=== PATIENT | male | born 1960 | race Caucasian/White ===

== ENCOUNTER 2023-11-03 16:28 | Emergency (ER) | payer OTHER, SELFPAY ==
--- NOTE | 2023-11-03 16:35 | ED_ITS ---
HPI - General Adult General Chief complaint: Hypertension Stated complaint: High BP 175/99, blurry vision Time Seen by Provider: 11/03/23 16:35 History of Present Illness HPI narrative: comes to ed with some multiple concerns. reports that he has noticed that his vision was not clear yesterday early am. was unable to make out distant road signs.he has a feeling of some abdominal bloating-like unable to pass gas. had a headache this am. noticed that his bp has been elevated, 177/99. is eating and drinking ok. no other neuro deficits. 63-year-old man presenting to the emergency department with concern of high blood pressure among other matters. I notice some hairs on his sweat pants. Looks to be dog hairs and he does mention how 2 days ago he had to put his 15-year-old dog Manjit down. He describes what may have been Manjit's last trip down the stairs and in the yard. Has been struggling with sleep. Now he is surrounded by 3 cats make sleeping challenging. Has at other times tried what sounds to be diphenhydramine but has left him somewhat groggy in the morning. Does have I believe a 20 and a 21-year-old son living at home with him currently. Due to some changes in one of his son's life and needing to drive him to work in the 5:00 a.m.hour a few? times a week he is needing to go to bed earlier than typical and has trouble falling asleep. He was up I believe yesterday morning early to drive his son to work. Was not feeling well on his way back. Sounds like must have been fatigued in part. Vision was not exactly clear. [place] ultimately having a bowel movement. It is okay now with normal vision and without headache. He has also had trouble historically in darker hours of driving and purchased some yellow tinted clip bonds that have been helpful. He did have a headache as well around this time of visual changes. Yesterday had a couple of bowel movements which he would normally associated with improvement in headache. This is a pattern of longstanding duration. He describes also what might be some employment related stress. History of mildly elevated blood pressures in clinic that he reports resolved at home on recheck. Primary has retired and he has not established new primary care. Last labs drawn for some years back when he was evaluated through this emergency department for potential stroke. MRI after overnight stay sounds to have been unremarkable. He does offer having had some panic attacks years ago. He has been treated somewhat remotely with what I am understanding was Ativan. He does say that he had been doing some reading regarding elevated blood pressures as noted above and association with visual changes, optic discs, and this did finally prompt visit here today. Related Data Home Medications Medication Instructions Recorded Confirmed No Known Home Medications 11/03/23 11/03/23 Allergies Allergy/AdvReac Type Severity Reaction Status Date / Time amoxicillin Allergy Verified 11/03/23 16:40 Review of Systems Status of ROS: Reports: 6 or more systems reviewed and unremarkable except as noted in History and below [facility] Social History Smoking Status: Never smoker Do you use any of these nicotine containing products: None Second hand tobacco smoke exposure: No How often do you have a drink containing alcohol: never How often do you have six or more drinks on one occasion: Never AUDIT-C Alcohol total score: 0 Non-prescribed substance use: denies use service: No Exam Narrative: Exam Narrative: Very pleasant. Calm. NAD. Appropriately, casually groomed. Initially seemed a little flushed facially but less over time in the ER. Skin is warm and dry. No apparent rash. Extremities are without edema and well-perfused. Heart in regular rate and rhythm without murmur rub or gallop. Lungs are clear. Cranial nerves 2-12 intact. Funduscopic exam is unremarkable with what appear to be normal optic discs. Sensation intact with good strength throughout. Head is atraumatic. Const: Vital Signs, click to edit/add: Vital Signs - 24 hr 11/03/23 16:41 11/03/23 17:23 11/03/23 17:30 Temperature 97.8 F Pulse Rate 69 75 Pulse Rate [Femora l] 82 Respiratory Rate 18 Blood Pressure Blood Pressure [Ri ght Upper Arm] 174/95 H Pulse Oximetry 100 98 98 Oxygen Delivery Me thod Room Air 11/03/23 17:32 11/03/23 17:45 Temperature Pulse Rate 70 69 Pulse Rate [Femora l] Respiratory Rate Blood Pressure 165/94 H Blood Pressure [Ri ght Upper Arm] Pulse Oximetry 98 93 Oxygen Delivery Me thod Documenting provider has reviewed patient's vital signs: yes Course Vital Signs Vital signs: Initial Vital Signs Temperature 97.8 F 11/03/23 16:41 Temperature Source Temporal Artery Scan 11/03/23 16:41 Pulse Rate 82 11/03/23 16:41 Pulse Rhythm Regular 11/03/23 16:41 Respiratory Rate 18 11/03/23 16:41 Blood Pressure 174/95 H 11/03/23 16:41 Blood Pressure Mean 121 H 11/03/23 16:41 Blood Pressure Position Supine 11/03/23 16:41 Pulse Oximetry 100 11/03/23 16:41 Oxygen Delivery Method Room Air 11/03/23 16:41 Vital Signs Temperature 97.8 F 11/03/23 16:41 Pulse Rate 82 11/03/23 16:41 Respiratory Rate 18 11/03/23 16:41 Blood Pressure 174/95 H 11/03/23 16:41 Pulse Oximetry 100 11/03/23 16:41 Oxygen Delivery Method Room Air 11/03/23 16:41 Temperature 97.8 F 11/03/23 16:41 Pulse Rate 69 11/03/23 17:45 Respiratory Rate 18 11/03/23 16:41 Blood Pressure 165/94 H 11/03/23 17:32 Pulse Oximetry 93 11/03/23 17:45 Oxygen Delivery Method Room Air 11/03/23 16:41 Medical Decision Making MDM Narrative Medical decision making narrative: Spent longer time in conversation. Over time in the emergency department monitoring, blood pressure did improve somewhat. No events on monitor. Given constellation of symptoms and associated life events I think stress is contributing to much of these findings. I doubt ischemic cardiovascular event in certainly does not have symptoms consistent with CVA here today. May have experienced some tachy arrhythmia? Bowel issues may be affected by emotional stress, grief. It sounds as though diet and water intake is also not ideal. All of this complicated by poor sleep lately, becoming a cycle. Does need to establish, reestablish primary care and likely time for an eye exam. We did discuss more extensive workup and I did offer this but Mr. Montero feels he will try to make some changes including getting better sleep, preferring to try some [id number] medications initially to help with sleep. See patient discharge plan Discharge Plan Discharge Clinical Impression: Other social stressor, Poor sleep, Elevated BP without diagnosis of hypertension Patient Disposition: Home, Self-Care Condition: Stable Additional Instructions: For sure poor sleep makes all sorts of things challenging. Practice good sleep sleep hygiene as discussed. You might try doxylamine or melatonin as less [id number]-morning options for sleep. These can be combined. Doxylamine is usually dosed at 25-50 mg per dose and melatonin is probably not more effective above 6 mg. Otherwise do your best to stay well-hydrated drinking 2-3 L of water a day. Very helpful to get in even just a little bit of heart pumping exercise daily. Plan something fun to do socially every week. You might benefit from sleeping under the mist of a cool mist humidifier or putting a quality humidifier otherwise in your bedroom. A better diet would likely be helpful; consider the Mediterranean diet. Check your blood pressures after period of rest maybe 3 to 4 times a week and follow-up in clinic with a week or 2 of these numbers. Please call on Sunday morning to schedule a clinic visit. Return otherwise for persistent loss of vision, new and focal weakness, severe headache. Prescriptions: No Action No Known Home Medications Stand Alone Forms: [facility] Info Instructions
[2023-11-03 16:41] VITALS: BP 174/95; PULSE 82; RESP 18; TEMP 36.6; O2SAT 100; BMI 31.0
[2023-11-03 17:23] VITALS: PULSE 69; O2SAT 98
[2023-11-03 17:30] VITALS: PULSE 75; O2SAT 98
[2023-11-03 17:32] VITALS: BP 165/94; PULSE 70; O2SAT 98
[2023-11-03 17:45] VITALS: PULSE 69; O2SAT 93
== END 2023-11-03 18:03 | disposition home or self-care (01) ==
LOC: ED 18:01
PROVIDERS: Emergency Provider Family Medicine
DX: F43.9 Reaction to severe stress, unspecified (principal); R03.0 Elevated blood-pressure reading, without diagnosis of hypertension; Z72.820 Sleep deprivation
CPT/HCPCS: 99283; 99284